=== PATIENT | female | born 1935 | race Caucasian/White ===

== ENCOUNTER 2018-03-21 10:10 | Day surgery (SDC) | END 2018-03-21 12:39 | disposition home or self-care (01) ==

== ENCOUNTER 2018-04-13 08:44 | Emergency (ER) | END 2018-04-13 11:25 | disposition home or self-care (01) ==

== ENCOUNTER 2018-08-04 13:23 | Emergency (ER) | END 2018-08-04 15:36 | disposition home or self-care (01) ==

== ENCOUNTER 2019-05-23 10:34 | Emergency (ER) | payer MEDICARE, OTHER ==
[~2019-05-23] VITALS: Ht 157.5 cm; Wt 68.0 kg
[~2019-05-23 10:34] MED LIST: AMLO-147 PO; ATOR40TA68 PO; BACL10TA PO; CARV12.579 PO; ESCI10TA48 PO; IBUP-1542 PO; LOSA100T15 PO; MELO7.5T38 PO; METF500T24 PO; OMEP20CA17 PO
[2019-05-23 11:12] VITALS: Ht 157.5 cm; Wt 68.0 kg
[2019-05-23] MEDS ORDERED: ONDANSETRON (ODT) 4 MG TAB ODT STA (15:38)
[2019-05-23] MEDS ORDERED: HYDROCODONE/APAP (10/325) TAB PO ONE (16:00)
[2019-05-23 17:21] VITALS: BP 134/78; PULSE 72; RESP 19
== END 2019-05-23 17:24 | disposition home or self-care (01) ==
LOC: E/R 10:34
DX: M79.602 Pain in left arm (principal); M79.601 Pain in right arm; I10 Essential (primary) hypertension; E11.9 Type 2 diabetes mellitus without complications; Z79.84 Long term (current) use of oral hypoglycemic drugs
CPT/HCPCS: 71045; 73060; 73090